=== PATIENT | female | born 1995 | race Caucasian/White ===

== ENCOUNTER 2018-10-01 19:59 | Emergency (ER) | payer OTHER ==
[~2018-10-01] VITALS: Ht 172.7 cm; Wt 72.6 kg
[2018-10-01] MEDS ORDERED: IBUPROFEN 600600 M1 PO (21:51)
[2018-10-01 22:32] VITALS: BP 103/58
--- NOTE | 2018-10-02 17:25 | EKG ---
[place] [address] [facility] [place] [address] ELECTROCARDIOGRAM REPORT Name: [facility] Room #: [facility]P [facility] [id number] Admission: 10/01/18 Attend Phys: Discharge: 10/01/18 Date of : [birth year] Report #: [id number] THIS REPORT FOR: //name// [facility] ED Test Date: 2018-10-01 Test Time: 20:02:19 Pat Name: KATY HEART Department: Room: Gender: F [employer]: ARVIND : 1995 Requested By: Alise Pablo Order Number: [id number] MD: Andrea Hernández Measurements Intervals [place] Rate: 91 P: 78 IN: 125 QRS: 78 QRSD: 94 T: 43 QT: 372 QTc: 458 Interpretive Statements Sinus rhythm Normal tracing No previous ECG available for comparison Electronically Signed On 10-02-2018 17:24:48 CDT by Andrea Hernández [email or web address] <ELECTRONICALLY SIGNED> By: Andrea Hernández MD, [facility] 10/02/18 1724 01 01 Andrea Hernández MD, FACC /EPI
== END 2018-10-01 22:33 | disposition home or self-care (01) ==
LOC: ER 19:59
DX: R07.89 Other chest pain (principal); Z98.890 Other specified postprocedural states